=== PATIENT | male | born 1955 | race African-American/Black ===

== ENCOUNTER 2016-10-22 22:31 | Inpatient (IN) ==
[2016-10-22] MEDS ORDERED: NS 1,000 ML ONE (22:42)
[2016-10-22] MEDS ORDERED: NS 1,000 ML IV ONE (22:44)
[2016-10-22 23:24] LABS: MANUAL DIFF NEEDED? NO
[2016-10-22 23:27] LABS: BASO% 0.4 % (0.0-0.8); EOS# 0.07 X1000 (0.0-0.7); EOS% 1.3 % (0.0-10.0); HEMATOCRIT 37.9 % (42.0-52.0); HEMOGLOBIN 13.4 g/dL (14.0-18.0); IMM GRAN# 0.02 X1000 (0.0-0.04); IMM GRAN% 0.4 % (0.0-0.5); LYMPH# 1.22 X1000 (1.2-3.4); LYMPH% 23.2 % (20.5-51.1); MCH 31.2 PG (27-31); MCHC 35.4 g/dL (33-37); MCV 88.3 FL (81-99); MONO# 0.55 X1000 (0.11-0.59); MONO% 10.5 % (1.7-9.3); MPV 9.7 FL (7.4-10.4); NEUT% 64.2 % (42.2-75.2); PLT 351 X1000 (130-400); RBC 4.29 XMIL (4.7-6.1)
[2016-10-22 23:46] LABS: ALBUMIN 3.3 g/dL (3.5-5.0); CALCIUM 8.1 mg/dL (8.8-10.2); POTASSIUM 3.9 mmol/L (3.5-5.1); TOTAL BILIRUBIN 0.22 mg/dL (0.20-1.00); TOTAL PROTEIN 6.6 g/dL (6.3-8.3)
[2016-10-22 23:50] LABS: URINE CULTURE NEEDED? NO; URINE MICRO REVIEW NEEDED? NO; URINE SOURCE CATH
[2016-10-23 00:08] LABS: UR AMPHETAMINES QUAL NONE DETECTED (NONE DETECT); UR BARBITUATES QUAL NONE DETECTED (NONE DETECT); UR BENZODIAZEPIN QUAL NONE DETECTED (NONE DETECT); UR CANNABINOIDS QUAL NONE DETECTED (NONE DETECT); UR COCAINE QUAL NONE DETECTED (NONE DETECT); UR METHADONE QUAL NONE DETECTED (NONE DETECT); UR OPIATES QUAL NONE DETECTED (NONE DETECT); UR OXYCODONE QUAL NONE DETECTED (NONE DETECT); UR PCP QUAL NONE DETECTED (NONE DETECT)
[2016-10-23 00:17] LABS: BILIRUBIN URINE NEGATIVE (NEGATIVE); BLOOD URINE NEGATIVE (NEGATIVE); COLOR STRAW; GLUCOSE URINE >1000 mg/dL (NEGATIVE); LEUKOCYTES URINE NEGATIVE (NEGATIVE); NITRITE URINE NEGATIVE (NEGATIVE); PH URINE 5.5; PROTEIN URINE NEGATIVE (NEGATIVE); SP GRAVITY URINE 1.025; TURBIDITY URINE CLEAR (CLEAR); UR EPITHELIAL CELLS <10 /HPF (<10); URINE BACTERIA NEGATIVE /HPF; URINE RBC <10 /HPF (<10); URINE WBC <10 /HPF (<10); UROBILINOGEN URINE NORMAL (NORMAL)
--- NOTE | 2016-10-23 00:55 | PROVIDER DOCUMENTATION ---
This chart was entered by Urvashi Canas Scribe, acting as scribe for Rik Lima MD. HPI-General Adult - General Stated Complaint: lethargic;hypotensive;hypoxic Time Seen by Provider: 10/22/16 22:42 Source: patient, EMS Allergies/Adverse Reactions: Patient Allergies Allergy/AdvReac Type Severity Reaction Status Date / Time warfarin sodium * Allergy Intermediate FLUSHING Verified 10/22/16 23:19 [From Coumadin] Home Medications: Home Medication List Medication Instructions Recorded Confirmed Last Taken Type Clopidogrel Bisulfate [Plavix] 75 mg PO DAILY 03/13/16 10/22/16 10/22/16 History Hydrochlorothiazide 25 mg PO DAILY 03/13/16 10/22/16 10/22/16 History Insulin Detemir [Levemir] 40 units SUBQ TID 03/13/16 10/22/16 10/22/16 History Metoclopramide HCl 10 mg PO TID CC 03/13/16 10/22/16 10/22/16 History Metoprolol Succinate 200 mg PO DAILY 03/13/16 10/22/16 10/22/16 History Ranitidine HCl 150 mg PO BID 03/13/16 10/22/16 10/22/16 History ATORVAstatin [Lipitor] 80 mg PO QHS #30 tablet 03/18/16 10/22/16 10/22/16 Rx Aspirin 81 mg PO DAILY #0 chewtab 03/18/16 10/22/16 10/22/16 Rx Insulin Glargine [Lantus] 10 unit SUBQ QAM #1 insuln.pen 03/18/16 10/22/1610/22 Rx Clindamycin [Cleocin] 150 mg PO Q6HR 09/23/16 10/22/16 10/22/16 History Escitalopram Oxalate 20 mg PO DAILY 09/23/16 10/22/16 10/22/16 History Fenofibrate [Tricor] 48 mg PO QHS 09/23/16 10/22/16 10/22/16 History Glipizide 10 mg PO BID 09/23/16 10/22/16 10/22/16 History Hydroxyzine Pamoate 50 mg PO 4XDAY 09/23/16 10/22/16 10/22/16 History Lisinopril 40 mg PO BID 09/23/16 10/22/16 10/22/16 History Metformin HCl 1,000 mg PO BID 09/23/16 10/22/16 10/22/16 History Trazodone HCl 100 mg PO HS 09/23/16 10/22/16 10/22/16 History Fluoxetine [Prozac] 20 mg PO DAILY 10/22/16 10/22/16 10/22/16 History - History of Present Illness -Gen Adult Nature of Presenting Problems: 61 Y/O M brought in be EMS do to being lethargic, hypotensive, and hypoxic. Pt on arrival wqs able to speak and open eyes on command. EMS states not moving left side. HX of stroke with left sided weakness. Upeer and lower extremity moderate left sided weakness noted. Location of Pain/Injury: reports: upper extremity, abdomen, lower extremity Pain Radiation: reports: no radiation Quality of Pain: reports: aching Severity: reports: moderate Onset/Duration: reports: this evening Timing: reports: still present Context/Activities at Onset: reports: light activity Associated Symptoms: reports: muscle aches, weakness. denies: nausea, seizure Recently seen or treated by another doctor?: No Review of Systems - Adult - REVIEW OF SYSTEMS - ADULT Constitutional: denies: chills, fever Eyes: reports: no symptoms reported Ears, Nose, Mouth & Throat: reports: no symptoms reported Cardiovascular: reports: no symptoms reported Respiratory: reports: no symptoms reported Gastrointestinal: reports: abdominal pain. denies: difficulty swallowing, nausea Genitourinary: reports: no symptoms reported Musculoskeletal: reports: muscle aches. denies: bone pain, back pain Integumentary: reports: no symptoms reported Neurological: reports: no symptoms reported Psychiatric: reports: no symptoms reported Endocrine: reports: no symptoms reported Hematologic/Lymphatic: reports: no symptoms reported Allergic/Immunologic: reports: no symptoms reported All Other Systems: Reviewed and Negative Past History - Adult - PAST MEDICAL HISTORY-ADULT Review of Records: reports: Old Records Reviewed, Nursing Assessment Review, Medications Reviewed, Social history reviewed & non-contributory. Major Childhood Illnesses: reports: denies history Cardiovascular: reports: cardiac disease, CAD, HTN, hyperlipidemia, VT Respiratory: reports: asthma, sleep apnea Gastrointestinal: reports: pancreatitis Obstetrical/Gynecological: reports: denies history Genitourinary: reports: kidney disease Musculoskeletal: reports: denies history Neurological: reports: CVA (right hemispheric stroke), stroke deficits (left sided weakness), Seizures/Epilepsy Endocrine/Immune: reports: Diabetes, other (hyponatremia) Other Conditions: reports: denies history - PRIOR SURGERIES/PROCEDURES Surgical/Procedure History: reports: cardiac stent (x4 stents), orthopedic ( extremity) (left knee Sx) - IMMUNIZATION STATUS Childhood Immunizations: See Nurse Assessment Flu Vaccine: See Nurse Assessment - FAMILY HISTORY Family History: reviewed, not pertinent - SOCIAL HISTORY Smoking: quit greater than 1 year Alcohol Use Frequency: occasionally Living Situation: family Physical Exam-General - PHYSICAL EXAM-ADULT Initial Vital Signs Reviewed: Yes - CONSTITUTIONAL General Appearance: alert, lethargic, slow to respond - EYES Eyes: PERRL/EOMI, pink conjunctivae, fundi clear, no AV nicking - HEAD, EARS, NOSE, MOUTH & THROAT HENMT: normocephalic/atraumatic, moist mucous membranes, normal ENT inspection, TMs normal, pharynx normal - NECK Neck: non-tender - RESPIRATORY Respiratory: chest non-tender, lungs clear, normal breath sounds - CARDIOVASCULAR Cardiovascular: normal peripheral pulses, regular rate, rhythm - GASTROINTESTINAL (ABDOMEN) Abdominal Exam: tenderness (LLQ moderate) - LYMPHATIC Lymphatic: no adenopathy - MUSCULOSKELETAL Extremity: other (lower and upper extremity moderate weakness to left side) - SKIN Integumentary: normal color, normal turgor, warm/dry Progress - PLAN OF CARE/RESULTS Progress/Plan/Lab Results: Vital Signs - 8 hr 10/22/16 22:36 Pulse Rate 75 Respiratory Rate 15 Blood Pressure 97/57 O2 Sat by Pulse Oximetry 98 Orders Category Date Time Status ABDOMEN/PELVIS W/CONTRAST [CT] Stat Exams 10/22/16 22:[address] ABD/PELVIS W/ IV CONT ONLY [CT] Stat Exams 10/22/16 22:48 Ordered ALCOHOL BLOOD Stat Lab 10/22/16 22:45 Ordered CBC WITH ELECTRONIC DIFF [HEME] Stat Lab 10/22/16 22:43 Uncollected CK PROFILE [SP CHEM] Stat Lab 10/22/16 22:43 Uncollected CMP [COMPREHENSIVE METABOLIC PANEL] [CHEM] Stat Lab 10/22/16 22:43 Uncollected Ddimer [D-DIMER] [CHEM] Stat Lab 10/22/16 22:43 Uncollected LACTATE, PLASMA [CHEM] Stat Lab 10/22/16 22:45 Uncollected LIPASE [CHEM] Stat Lab 10/22/16 22:45 Uncollected TROPONIN T Stat Lab 10/22/16 22:43 Uncollected UA NIMS W/REFLEX CULT [URINALYSIS] Stat Lab 10/22/16 22:44 Uncollected UDS [URINE DRUG SCREEN] Stat Lab 10/22/16 22:45 Uncollected 0.9% Sodium Chloride Inj [Ns] 1,000 ml Med 10/22/16 22:42 Discontinued .ROUTE As Directed 0.9% Sodium Chloride Inj [Ns] 1,000 ml Med 10/22/16 22:44 Active IV 999 mls/hr EKG [EKG] Stat Ther 10/22/16 22:36 Ordered Result Diagrams: 10/22/16 22:48 10/22/16 22:48 - EKG 1 Time of EKG reading by physician:: 22:40 EKG Read and Signed by:: Rik Lima EKG Interpretation (*Must complete 3 of following elements*): Abnormal ( possible left atrial enlargement, infereior infract, t wave abnormality, consider lateral ischemia) Rate: 77 Rhythm: NSR Comments: Abnormal ECG, Prolonged QT - XRAY 1 XRAY Study: Chest XRAY Interpretation: csrdiomegaly, questionable pulmonary vascular congestion - ULTRASOUND (By Radiology) 1 US Study: Aorta Impression: Normal US Results: NAD - CONSULTS/PCP/HOSPITALIST Notification #1 *Consult/PCP/Hospitalist*: Time Discussed: 00:28 Reason/Comments: admit Consult Disposition: Admit (accepted) Departure - Departure Time of Disposition Decision: 00:31 DIAGNOSIS: Hypotension Qualifiers: Hypotension type: idiopathic hypotension Qualified Code(s): I95.0 - Idiopathic hypotension Disposition: ADMITTED INPATIENT 09 Certified Medical Emergency: Emergent Condition: Fair - Critical Care Note This patient required my direct personal management.: No This chart was documented by the indicated scribe, (Urvashi Canas Scribe) and accurately reflects the services I performed and decisions made by me, Rik Lima MD, as attested by the provider's signature.
[2016-10-23] MEDS ORDERED: ZOFRAN IV PRN (02:36)
[2016-10-23] MEDS: NS 1,000 ML IV SCH ×2 (03:20→14:42)
--- NOTE | 2016-10-23 05:43 | EKG Report ---
Test Performed on : 10/22/2016 10:40:51 PM Test Reason : hypotension Blood Pressure : / mmHG Vent. Rate : 077 BPM Atrial Rate : 077 BPM P-R Int : 160 ms QRS Dur : 104 ms QT Int : 448 ms P-R-T Axes : 068 007 112 degrees QTc Int : 506 ms Normal sinus rhythm. Possible Left atrial enlargement Inferior infarct (cited on or before 19-OCT-2013) T wave abnormality, consider lateral ischemia Prolonged QT Abnormal ECG When compared with ECG of 15-MAR-2016 03:31, Serial changes of Inferior infarct present Unconfirmed Result
--- NOTE | 2016-10-23 06:23 | HISTORY AND PHYSICAL ---
PRIMARY CARE PHYSICIAN: Dr. Venkatesh Olmedo. CHIEF COMPLAINT: Passed out. HISTORY OF PRESENTING ILLNESS: A 61-year-old male with a history of hypertension, diabetes mellitus type 2, and extensive history of coronary disease and [place]. Had presented to the emergency department after he had an episode where he passed out. The patient states he was going to the bathroom, then all of a sudden he passed out. He does not remember much more than that. He was brought to the emergency department. He was moderately lethargic and very hypotensive. He was given IV fluid boluses, and he seemed to improve. Due to patient's presenting symptoms, he will need hospitalization and further management. At the time of my examination, he states that he still feels weak. He denies any headache, fever, chills, chest pain, hemoptysis, or weight changes, but complained of weakness and being short of breath. PAST MEDICAL HISTORY: Hypertension, diabetes mellitus type 2, hyperlipidemia, coronary artery disease/myocardial infarction. PAST SURGICAL HISTORY: Coronary stent, left knee surgery, right arm surgery. ALLERGIES: Warfarin. CURRENT MEDICATIONS: As listed in the MAR. SOCIAL HISTORY: He is a former smoker. History of alcohol abuse. History of illicit drug use, including marijuana and cocaine. FAMILY HISTORY: Positive for coronary artery disease in mother. REVIEW OF SYSTEMS: Twelve point review of systems listed as in HPI. Other systems negative. PHYSICAL EXAMINATION: GENERAL: Cooperative, friendly male. He is resting more comfortably now. VITAL SIGNS: Temperature 97.7 degrees, pulse 75, respirations 15, blood pressure 97/57. HEENT: Atraumatic, normocephalic. Extraocular movements intact. PERRLA. NECK: No masses. CHEST: Clear to auscultation. CARDIOVASCULAR: Regular rate and rhythm. ABDOMEN: Soft. Positive bowel sounds. EXTREMITIES: No edema. NEUROLOGIC: He is awake, alert, oriented x1. GENITOURINARY: No bladder distention. SKIN: Warm. LABORATORIES AND STUDIES: WBC 5.26, hemoglobin 13.4, hematocrit 37.9, platelets 351,000. Sodium 141, potassium 3.9, chloride 103, CO2 23, BUN is 13, creatinine is 1.7, glucose is 300. Troponin is 0.061. ASSESSMENT: A 61-year-old male with a history of hypertension, diabetes mellitus type 2, and coronary artery disease, had presented to the emergency department after he had an episode where he passed out. He was found to be lethargic and very hypotensive in the ER. He was given IV fluids. He was moderately also confused. Due to his presenting symptoms, he will need hospitalization for further management. 1. Hypotension, unspecified. 2. Syncopal episode. 3. Acute kidney injury. 4. Diabetes mellitus type 2. 5. Coronary artery disease. PLAN: 1. We will admit patient to [facility]. 2. We will continue with IV fluids. 3. We will check orthostatic blood pressure and pulse. 4. We will monitor renal function. 5. Monitor blood glucose and put patient on sliding scale insulin regimen. 6. We will trend his troponins. 7. We will check echocardiogram. 8. We will consult cardiology. 9. Will put patient on DVT prophylaxis with SCDs. 10. We will continue to follow and reassess. cc: Leno Vargas MD
--- NOTE | 2016-10-23 06:24 | Diag Imaging Result Document ---
PROCEDURE NAME: ABDOMEN/PELVIS W/O CONTRAST - 10/22/2016 CT ABDOMEN AND PELVIS WITHOUT ORAL OR INTRAVENOUS CONTRAST: FINDINGS: Heart is enlarged. The gallbladder is contracted. No calcified stones. Normal spleen and adrenal glands. Normal noncontrasted pancreas. No perinephric inflammation. Calcifications on the left believed to be vascular rather than renal stones. No other renal stones. No hydronephrosis. Tiny cysts or possibly even hemangioma inferiorly in the right lobe of the liver. No aortic aneurysm. Mild atherosclerosis. There is small periaortic lymph nodes. No bowel obstruction. Normal appendix. No abscess. The stomach is distended with fluid. There are fluid-filled loops of bowel in the left lower quadrant as well. The urinary bladder is moderately distended and appears normal. The prostate is not enlarged. There are small mesenteric lymph nodes. IMPRESSION: 1. Several fluid-filled loops of bowel in the left lower quadrant. Although this may be a normal variant, this could represent enteritis. 2. Cardiomegaly. 3. Tiny nonspecific hypodense nodules within the liver and questionable pancreatic tail hypodense nodule. A preliminary report was given at 12:44 a.m. [facility]
[2016-10-23] MEDS: HUMULIN R SUBQ SCH ×4 (06:54→20:38)
--- NOTE | 2016-10-23 08:01 | Diag Imaging Result Document ---
PROCEDURE NAME: CHEST-PORTABLE - 10/22/2016 PORTABLE CHEST AT 2034 HOURS: FINDINGS: Considering differences in technique, there has been no significant change since 03/13/2016. IMPRESSION: Stable chest.
[2016-10-23] MEDS: ASPIRIN PO SCH (08:59)
[2016-10-23] MEDS: PLAVIX PO SCH (09:00)
[2016-10-23] MEDS: NORCO-5 PO PRN ×3 (09:00→20:36)
[2016-10-23] MEDS ORDERED: LEXAPRO PO SCH (09:00)
[2016-10-23] MEDS: ZANTAC PO SCH ×2 (10:01→20:37)
[2016-10-23] MEDS: PROZAC PO SCH (10:01)
[2016-10-23] MEDS: LANTUS SUBQ SCH (10:02)
[2016-10-23 10:38] LABS: ALLEN TEST YES; BE 2.3 mmoll (-3.0-3.0); BLOOD TYPE ARTERIAL; DRAW SITE R RADIAL; METHB 1.8 % (0.0-1.5); MODALITY CANNULA; O2(CT) 17.7 mL/dL (15.0-23.0); PCO2(98.6) 43 mmHg (35-45); PO2(98.6) 86 mmHg (60-100); SAMPLE BLOOD; SAO2 97.7 % (95.0-100.0); THB 13.3 g/dL (11.5-17.4); pH(98.6) 7.41 (7.35-7.45)
--- NOTE | 2016-10-23 11:31 | CONSULTATION ---
DATE OF CONSULTATION: 10/23/2016 REASON FOR CONSULTATION: Cardiology was consulted for altered mental status, chest discomfort. HISTORY OF PRESENT ILLNESS: Mr. Castro is a 61-year-old gentleman with history of hypertension, diabetes, coronary artery disease, and CVA in the past, who comes with complaints of having been disoriented and he says he passed out; however, his family states that he was a little disoriented and did not know what was going on for about an hour. He has been having shortness of breath for the last couple of weeks. In addition, he has noted left-sided chest discomfort. He says it tends to worsen when he takes a deep breath. He has had stents in the past multiply and is followed up at the [facility]. He denies fevers or chills. There is no history of hemoptysis. There is no history of undue nausea or vomiting. PAST MEDICAL HISTORY: 1. Hypertension. 2. Diabetes. 3. Hyperlipidemia. 4. Coronary artery disease with myocardial infarction and multiple stents in the past. 5. Last cardiac catheterization at [facility] Left main was free of disease. Left anterior descending artery had luminal irregularities. First diagonal had 60% mid stenosis. Circumflex artery previous stents placed in the mid and distal segment, and were patent. The right coronary artery had patent stents in the proximal and distal. Left ventricular ejection fraction 50% at that time. ALLERGIES: He is allergic to Coumadin/warfarin. SOCIAL HISTORY: He is a former smoker. History of alcohol abuse. He has history of illicit drug abuse including cocaine and marijuana in the past. PHYSICAL EXAMINATION: Vital Signs: Blood pressure was 147/87. Neck: There was no thyromegaly. Cardiovascular System: Normal jugular venous pressure. No carotid bruit. First and second heart sounds were heard. There is no S3 gallop. Respiratory System: Normal air entry. There are no crepitations or rhonchi. Abdomen: Soft, nontender. Bowel sounds were heard. Central nervous system: Was alert and moving extremities. Detailed central nervous system examination not performed. LABORATORY EXAMINATION: Revealed sodium 141, potassium 3.9, BUN 13, creatinine 1.7. Cardiac enzymes negative. Hematology: Hemoglobin 13.4, WBC 5.26, platelet count of 351,000. D-dimer 0.79. IMAGING: Chest x-ray was stable. He had an abdomen and pelvis CT which revealed several fluid-filled loops of bowel, nonspecific. ASSESSMENT AND PLAN: 1. Mr. Candelario Castro is a 61-year-old gentleman with history of hypertension, diabetes, and known coronary artery disease, who comes with complaints of having, as noticed by family, altered mental status for about an hour. He has also had shortness of breath for a couple of weeks in addition to having chest pain, which is described as pleuritic. He has elevated D- dimers in the setting of elevated renal insufficiency; however, concern is whether or not he had a pulmonary embolism. We will set him up for a V/Q scan. 2. We will also get a CT scan of his head to make sure there is no obvious pathology. 3. From a cardiac standpoint, we will continue with his home medication of aspirin and Plavix. 4. He has diabetes. Continue with insulin. 5. Hypocholesterolemia. Consider fenofibrate and atorvastatin. 6. If his V/Q scan is negative, we will set him up for a Cardiolite stress test to assess for and rule out ischemia, and also get an echocardiogram to reassess his cardiac and valvular status. cc: Marcus Kinsey MD
--- NOTE | 2016-10-23 11:56 | Diag Imaging Result Document ---
PROCEDURE NAME: HEAD W/O CONTRAST - 10/23/2016 CT OF THE HEAD WITHOUT CONTRAST: FINDINGS: There is encephalomalacia in the medial posterior left parietal lobe. This was also present on 09/23/2016. There is no evidence of bleed or abnormal extra-axial fluid collection. The visualized paranasal sinuses are clear. The calvarium is intact. IMPRESSION: Chronic ischemic changes. No evidence of acute disease. If clinically indicated, further evaluation with MRI may be desirable.
[2016-10-23 12:50] LABS: CK INDEX 7.9 (0.0-2.5); CK-MB 19.72 ng/mL (0.0-5.0)
--- NOTE | 2016-10-23 13:51 | Diag Imaging Result Document ---
PROCEDURE NAME: LUNG SCAN / VQ - 10/23/2016 VENTILATION-PERFUSION NUCLEAR MEDICINE LUNG SCAN: TECHNIQUE: 38.2 mCi of DTPA inhaled for the ventilation images. 5.5 mCi MAA given IV for the perfusion images. FINDINGS: There are no ventilation perfusion mismatches. Questionable single matching defect anteriorly in the left lung. No other abnormality. IMPRESSION: Low probability for a pulmonary embolus.
--- NOTE | 2016-10-23 16:11 | PROGRESS NOTE ---
DATE: 10/23/2016 SUBJECTIVE: A 61-year-old male with history of hypertension, diabetes mellitus type 2, extensive history of coronary artery disease and myocardial infarction in the past. Presented to the emergency room department after he had an episode where he passed out. The patient stated he was going to the bathroom and all of a sudden he passed out. Denies remembering much more than that. He was brought to the emergency department moderately lethargic, very hypotension. Was given IV bolus and seemed to improve. Due to the patient's presenting symptoms, he are going to put him in the hospital. He has history of hypertension, diabetes mellitus type 2, hyperlipidemia, coronary artery disease. He said he has had 4 or 5 heart attacks and 4 or 5 strokes. I am not sure if he is confusing those. He has coronary stent placement. Left knee surgery. Right arm surgery. ALLERGIES: Warfarin. OBJECTIVE: General: When I saw him in the emergency room, he was awake and alert and denied any chest pain. Still some low-grade nausea. He did admit he had some nausea yesterday before he had a syncopal event. Denies chest pain, or jaw pain or shoulder pain. Vital signs: Afebrile, temperature 97.4 degrees, pulse 80, respirations 18, blood pressure 155/93. HEENT: Pupils are equal, round. Lungs: Are clear in all lung schaefer. Cardiovascular: Regular rhythm and rate without murmur or S3. Abdomen: Soft. Skin: Is warm and dry. Height 5 feet 7 inches. Urine output 1800 mL. LABORATORY FROM YESTERDAY EVENING: White count 5260, hematocrit 37, platelet count 351,000. Chemistries look good. Total CPK was 251. His troponin 0.061, 0.190 and 0.101. ASSESSMENT/PLAN: Dr. Kinsey has seen this 61-year-old gentleman with history of hypertension, diabetes, known coronary artery disease. Comes in complaining of having family noticed altered mental status and he also had passed out. Over a couple of weeks he has been having chest pain, described as pleuritic. He had an elevated D-dimer. He underwent V/Q scan, low probability of pulmonary emboli and they did a myocardial perfusion scan today. Troponin for the most part unremarkable, although he his elevated CPK was nonspecific. Creatinine is 1.7. Looking at his orders, he is on trazodone 100 mg at bedtime, Zantac 150 mg b.i.d., normal saline 100 mL an hour, Prozac 20 mg a day. Tricor 48 mg p.o. at bedtime. Plavix 75 mg a day, Lipitor 80 mg daily, aspirin 81 mg a day. cc: Hola Sherman MD
--- NOTE | 2016-10-23 20:11 | ECHO REPORT ---
ORDER DATE: 10/23/2016 ECHOCARDIOGRAM: MEASUREMENTS: Left ventricular end-diastolic diameter 4.7, end systolic diameter 3.9, septal thickness 1.4, posterior wall thickness 1.4, left atrium 3.9, aortic root 3.2. SUMMARY: 1. Adequate quality study. 2. Aortic valve is trileaflet and opens normally on 2-dimensional images with peak gradient less than 10 mmHg. Mitral, tricuspid and pulmonic valves are without structural abnormality with mild mitral regurgitation. Mild tricuspid regurgitation and mild pulmonic insufficiency. The estimated systolic PA pressure by Doppler is approximately 20 mmHg. The aortic root is normal size. 3. Normal left ventricular chamber size with mild to moderate concentric left hypertrophy is demonstrated. Estimated left ventricular ejection fraction is 40% in the setting of mild global hypokinesis. Doppler suggests grade 1 left ventricular diastolic dysfunction due to impaired relaxation. The left atrium is mildly enlarged. Right atrium and right ventricle are normal size with preserved right ventricular systolic function. 4. No pericardial effusion. 5. Appearance of inferior vena cava suggests normal central venous pressure. CONCLUSION: 1. Mild mitral regurgitation. 2. Mild tricuspid regurgitation. 3. Mild to moderate concentric left hypertrophy with estimated left ventricular ejection fraction 40%. 4. Grade 1 left ventricular diastolic dysfunction. 5. Mild left atrial enlargement. cc: MD Leno Mcmillan MD
[2016-10-23 20:31] LABS: CK INDEX 6.1 (0.0-2.5); CK-MB 13.51 ng/mL (0.0-5.0)
[2016-10-23] MEDS: DESYREL PO SCH (20:37)
[2016-10-23] MEDS: TRICOR PO SCH (20:37)
[2016-10-23] MEDS: LIPITOR PO SCH (20:41)
[2016-10-24] MEDS: NS 1,000 ML IV SCH ×3 (01:05→20:37)
[2016-10-24] MEDS: NORCO-5 PO PRN (04:47)
[2016-10-24 04:57] LABS: MANUAL DIFF NEEDED? NO
[2016-10-24 05:01] LABS: BASO% 0.3 % (0.0-0.8); EOS# 0.22 X1000 (0.0-0.7); EOS% 3.1 % (0.0-10.0); HEMATOCRIT 38.9 % (42.0-52.0); HEMOGLOBIN 13.6 g/dL (14.0-18.0); IMM GRAN# 0.02 X1000 (0.0-0.04); IMM GRAN% 0.3 % (0.0-0.5); LYMPH# 2.89 X1000 (1.2-3.4); LYMPH% 40.8 % (20.5-51.1); MCV 88.6 FL (81-99); MONO# 0.52 X1000 (0.11-0.59); MONO% 7.3 % (1.7-9.3); MPV 9.6 FL (7.4-10.4); NEUT% 48.2 % (42.2-75.2); PLT 324 X1000 (130-400); RBC 4.39 XMIL (4.7-6.1)
[2016-10-24 05:25] LABS: AGAP 13; BUN 8 mg/dL (8-22); CHLORIDE 100 mmol/L (98-107); COSMO 283; POTASSIUM 3.6 mmol/L (3.5-5.1); SODIUM 138 mmol/L (136-145); TCO2 25 mmol/L (25-35)
[2016-10-24] MEDS: HUMULIN R SUBQ SCH ×4 (06:33→20:38)
[2016-10-24] MEDS: ZANTAC PO SCH ×2 (08:38→20:38)
[2016-10-24] MEDS: LEXAPRO PO SCH (08:38)
[2016-10-24] MEDS: PLAVIX PO SCH (08:38)
[2016-10-24] MEDS: PROZAC PO SCH (08:39)
[2016-10-24] MEDS: ASPIRIN PO SCH (08:39)
[2016-10-24] MEDS: LANTUS SUBQ SCH (08:42)
--- NOTE | 2016-10-24 09:27 | PROGRESS NOTE ---
DATE: 10/24/2016 SUBJECTIVE: He states he is doing fairly well. He got up to get a shower. He has not had any presyncopal or syncopal feelings since he has been here in the hospital. OBJECTIVE: Vital Signs: Afebrile with temp 98.5 degrees, pulse 74, respirations 18, blood pressure 140/79. Eyes: Pupils are equal, round. Lungs: Clear in all lung schaefer. Cardiovascular exam: Regular rhythm and rate without murmur or S3. Abdomen: Soft. Skin: Warm and dry. : Urine output is 600 mL. LAB: White count 7090, hematocrit 38, platelet count 324,000. Chemistries this morning: Sodium 138, potassium 3.6, chloride 100, bicarb 25, BUN 8, creatinine 1.0. Blood sugars have been 189, 244, 253. Troponin 0.101 and then 0.093. ASSESSMENT AND PLAN: 1. A 70-year-old with history of hypertension, diabetes and coronary artery disease came in complaining with family who noticed altered mental status, and he reports that he passed out. He has not been going to the bathroom for a couple weeks. He has been having some chest pain. He has a mild elevation of D-dimer. Ventilation/perfusion scan was low probability. Myocardial perfusion scan pending. Appears stable. He is requesting a higher dose of pain medicine. 2. Diabetes mellitus type 2. His blood sugar is running in the 200s. 3. He has chronic left-sided pain and neck pain for which he takes [place] at home. He is requesting a higher dose of the [place], so I will go up to the 10 mg. cc: Hola Sherman MD
[2016-10-24 09:59] LABS: AGAP 12; BUN 7 mg/dL (8-22); CALCIUM 8.2 mg/dL (8.8-10.2); CHLORIDE 99 mmol/L (98-107); CK PROFILE 172 U/L (24-204); COSMO 280; MAGNESIUM 1.6 mg/dL (1.5-2.7); POTASSIUM 3.9 mmol/L (3.5-5.1); SODIUM 136 mmol/L (136-145); TCO2 25 mmol/L (25-35)
[2016-10-24] MEDS: NORCO-10 PO PRN ×2 (10:16→16:09)
--- NOTE | 2016-10-24 12:49 | PROGRESS NOTE ---
DATE: 10/24/2016 CHIEF COMPLAINT: Chest discomfort, syncope. SUBJECTIVE: Mr. Castro is still feeling occasional funny feelings in the chest. Telemetry does not show any evidence of any significant arrhythmia. EKG done today showed sinus rhythm with LVH and a diffuse T-wave abnormality. They have done previous echocardiograms on him showing moderately impaired ejection fraction at 40% with LVH. The patient is bothered by significant back and spine pain. OBJECTIVE: Vital signs: Blood pressure right now is 140/79, temperature of 98.5, pulse 74, respirations 19. General: Patient is awake, alert, oriented, in no distress. HEENT: Unremarkable. Chest: Clear to auscultation and percussion. Cardiac: Heart sounds regular and rhythmic. No gallop or murmur. Abdomen: Nontender. Extremities: Extremities show fairly decreased pulses. No edema. Neurological exam: He moves four extremities. BLOOD WORK: Today, his sodium is 136, potassium 3.9. CK is down to 172. Troponin came down to 0.059. The highest troponin was 0.101 and then 0.093, and now it has come down to a more normal volume. BUN and creatinine are normal. IMPRESSION: 1. Patient presenting with a syncopal episode. Etiology of this is unclear. 2. Patient has a rise and fall on both CPK and troponin levels consistent with a [id number] myocardial infarction. 3. History of strokes. 4. Chronic back pain. 5. History of previous myocardial infarction and stents to the right coronary artery. RECOMMENDATIONS: With this patient's presentation and the finding of rise and fall of his CPKs and troponin, we should probably consider pursuing left heart catheterization to confirm or rule out the presence of obstruction of his coronary arteries. I would probably ask him to take some amlodipine in addition to his metoprolol. We will make a final decision on Wednesday morning depending on his clinical course. cc: Venkatesh Hughes MD
[2016-10-24] MEDS: LOPRESSOR PO SCH ×2 (14:50→20:37)
[2016-10-24] MEDS: LIPITOR PO SCH (20:37)
[2016-10-24] MEDS: TRICOR PO SCH (20:37)
[2016-10-24] MEDS: DESYREL PO SCH (20:37)
[2016-10-24] MEDS: NORVASC PO SCH (20:38)
[2016-10-25] MEDS: LOPRESSOR PO SCH ×4 (04:01→20:35)
[2016-10-25] MEDS: NORCO-10 PO PRN ×3 (04:07→20:34)
[2016-10-25 05:43] LABS: AGAP 11; BUN 8 mg/dL (8-22); CALCIUM 8.3 mg/dL (8.8-10.2); CHLORIDE 102 mmol/L (98-107); COSMO 285; SODIUM 140 mmol/L (136-145); TCO2 27 mmol/L (25-35)
[2016-10-25] MEDS: HUMULIN R SUBQ SCH ×4 (06:42→20:35)
[2016-10-25] MEDS: NS 1,000 ML IV SCH ×3 (06:42→23:14)
[2016-10-25] MEDS: ASPIRIN PO SCH (08:56)
[2016-10-25] MEDS: LEXAPRO PO SCH (08:57)
[2016-10-25] MEDS: ZANTAC PO SCH ×2 (08:57→20:35)
[2016-10-25] MEDS: PROZAC PO SCH (08:57)
[2016-10-25] MEDS: LANTUS SUBQ SCH (08:57)
[2016-10-25] MEDS: PLAVIX PO SCH (08:57)
[2016-10-25] MEDS: NORVASC PO SCH ×2 (08:58→20:35)
--- NOTE | 2016-10-25 10:47 | PROGRESS NOTE ---
DATE: 10/25/2016 SUBJECTIVE: Mr. Castro states he is feeling better. He has still got pain on the left side of his chest. He has not had any presyncopal or syncopal episodes. Does not feel dizzy. No palpitations. PHYSICAL EXAMINATION: Vital Signs: Temperature 97.9 degrees, pulse 78, respirations 12, blood pressure 113/67. Blood pressures have remained between 113-123/55-67. Lungs: Are clear in all lung schaefer. Cardiovascular Examination: Regular rhythm and rate without murmur or S3. Abdomen: Soft. Skin: Is warm and dry. Chest: I do not elicit any true left chest wall tenderness. Laboratory Data: I reviewed his labs from yesterday. White count 7090, hematocrit 38, platelet count 324,000. Blood sugars 245, 223, and 204. ASSESSMENT AND PLAN: 1. Had a syncopal episode, etiology unclear. May have been vasovagal. He did have nausea with this event. 2. Had a rise and fall in his CPK and troponin, consistent with a non-ST elevation myocardial infarction so have a perfusion scan pending. 3. History of cerebrovascular accident. 4. Chronic back pain. 5. History of previous myocardial infarction with stents placed in the right coronary artery in the past. 6. Musculoskeletal pain in the neck and left shoulder which has been chronic. We did put him on some pain medication. 7. He has a myocardial perfusion scan depending on Wednesday. He is on Norvasc 5 mg twice a day, aspirin 81 mg a day. Lipitor 80 mg daily, Plavix 75 mg a day, Lexapro 20 mg a day, TriCor 48 mg by mouth at bedtime, Prozac 20 mg daily, hydrocodone - he gets 10 mg every 6 hours as needed, insulin glargine 10 units subcutaneously every morning, metoprolol 50 mg by mouth every 6 hours, normal saline is going at 100 mL an hour, Zantac 150 mg twice a day, trazodone 100 mg at bedtime. Looking at the previous echocardiogram with Doppler done on the , he has mild mitral regurgitation, mild tricuspid regurgitation, mild to moderate concentric left ventricular hypertrophy. Estimated left ventricular ejection fraction of 40%, grade 1 ventricular systolic dysfunction, mild left atrial enlargement. I think I will turn his fluids down to 65 mL an hour from 100. cc: Hola Sherman MD
--- NOTE | 2016-10-25 12:55 | PROGRESS NOTE ---
DATE: 10/25/2016 CHIEF COMPLAINT: Chest discomfort. SUBJECTIVE: Mr. Castro states that he is still having discomfort in the chest intermittently associated with some episodes of sweats. His troponins have come back down to a value of 0.041. His ProBNP was slightly elevated at 221, CK has come down to 118. OBJECTIVE: His blood pressure is 129/79, temperature 98.4, pulse 68, respirations 16. He is awake, alert and oriented, in no distress. HEENT is unremarkable. Chest is clear to auscultation and percussion. Heart sounds regular and rhythm. No gallop or murmur. Abdomen is nontender, soft. No masses. No hepatomegaly. Extremities showed no edema. Neurologic: He moves all 4 extremities. IMPRESSION: 1. The patient presented with chest pain suspicious for angina pectoris, unstable. By enzyme criteria, he has had a rise and fall on the CKs and troponins suggesting [id number] myocardial infarction. His EKG is abnormal to begin with, with repolarization abnormality which is diffuse in the lateral precordium and lateral leads. His EKG done today again shows the same abnormality with LVH and possible inferior DE. 2. Previous stents to the right coronary artery. 3. History of strokes. 4. Chronic back pain. 5. History of presentation with a syncopal episode. RECOMMENDATIONS: At this point in time, the patient is already on maximal medical therapy including amlodipine, aspirin, Plavix, atorvastatin, fenofibrate, metoprolol, and he continues to have discomfort. I would suggest to pursue a diagnostic catheterization to confirm or rule out the presence of coronary artery disease. Benefits, risks and complications of cardiac catheterization were discussed with him. He understood and requested to proceed. We will make arrangements. cc: Venkatesh Hughes MD
[2016-10-25] MEDS: DESYREL PO SCH (20:35)
[2016-10-25] MEDS: TRICOR PO SCH (20:35)
[2016-10-25] MEDS: LIPITOR PO SCH (20:35)
[2016-10-26] MEDS: LOPRESSOR PO SCH ×4 (03:27→20:39)
[2016-10-26 05:03] LABS: MANUAL DIFF NEEDED? NO
[2016-10-26 05:08] LABS: BASO% 0.1 % (0.0-0.8); EOS# 0.27 X1000 (0.0-0.7); HEMATOCRIT 39.7 % (42.0-52.0); HEMOGLOBIN 13.8 g/dL (14.0-18.0); IMM GRAN# 0.02 X1000 (0.0-0.04); IMM GRAN% 0.3 % (0.0-0.5); LYMPH# 2.46 X1000 (1.2-3.4); LYMPH% 36.8 % (20.5-51.1); MCH 30.9 PG (27-31); MCHC 34.8 g/dL (33-37); MCV 88.8 FL (81-99); MONO# 0.52 X1000 (0.11-0.59); MONO% 7.8 % (1.7-9.3); MPV 9.9 FL (7.4-10.4); PLT 316 X1000 (130-400); RBC 4.47 XMIL (4.7-6.1)
[2016-10-26 05:15] LABS: PROTIME 10.5 Seconds (9.2-11.7); PTT 26.5 Seconds (22.0-36.0)
[2016-10-26 05:19] LABS: AGAP 11; BUN 8 mg/dL (8-22); CHLORIDE 100 mmol/L (98-107); COSMO 285; MAGNESIUM 1.6 mg/dL (1.5-2.7); POTASSIUM 3.6 mmol/L (3.5-5.1); SODIUM 139 mmol/L (136-145); TCO2 28 mmol/L (25-35)
--- NOTE | 2016-10-26 06:26 | EKG Report ---
Test Performed on : 10/25/2016 06:15:00 AM Test Reason : chest pain [place] Blood Pressure : / mmHG Vent. Rate : 062 BPM Atrial Rate : 062 BPM P-R Int : 158 ms QRS Dur : 112 ms QT Int : 452 ms P-R-T Axes : 055 -13 078 degrees QTc Int : 458 ms Normal sinus rhythm. Inferior infarct (cited on or before 19-OCT-2013) Abnormal ECG When compared with ECG of 24-OCT-2016 06:12, (Unconfirmed) No significant change was found Confirmed by Alyx MEJÍA, Franco Vaca ([id number]) on 10/26/2016 8:15:16 AM
[2016-10-26] MEDS: HUMULIN R SUBQ SCH ×4 (06:30→20:38)
--- NOTE | 2016-10-26 06:30 | EKG Report ---
Test Performed on : 10/25/2016 1:26:10 PM Test Reason : [place] Blood Pressure : / mmHG Vent. Rate : 070 BPM Atrial Rate : 070 BPM P-R Int : 162 ms QRS Dur : 108 ms QT Int : 422 ms P-R-T Axes : 052 -07 051 degrees QTc Int : 455 ms Normal sinus rhythm. Possible Left atrial enlargement Possible Inferior infarct (cited on or before 19-OCT-2013) Cannot rule out Anterior infarct , age undetermined T wave abnormality, consider lateral ischemia Abnormal ECG When compared with ECG of 25-OCT-2016 06:15, (Unconfirmed) No significant change was found Confirmed by Alyx MEJÍA, Franco Vaca ([id number]) on 10/26/2016 8:24:06 AM
--- NOTE | 2016-10-26 06:36 | EKG Report ---
Test Performed on : 10/26/2016 06:12:51 AM Test Reason : chest pain [place] Blood Pressure : / mmHG Vent. Rate : 067 BPM Atrial Rate : 067 BPM P-R Int : 170 ms QRS Dur : 114 ms QT Int : 446 ms P-R-T Axes : 039 -07 139 degrees QTc Int : 471 ms Normal sinus rhythm. Cannot rule out Anterior infarct (cited on or before 01-NOV-2014) T wave abnormality, consider lateral ischemia Abnormal ECG When compared with ECG of 25-OCT-2016 13:26, (Unconfirmed) No significant change was found Confirmed by Opal MEJÍA, Danilo Vaca ([id number]) on 10/26/2016 8:27:07 AM
[2016-10-26] MEDS ORDERED: HEPARIN 1000 UNITS/NS 2,000 UNIT/1,000 ML IV.SOLN ONE ×2 (07:38→07:46)
[2016-10-26] MEDS ORDERED: NITROGLYCERIN ONE (07:40)
[2016-10-26] MEDS ORDERED: VERSED ONE (07:56)
[2016-10-26] MEDS ORDERED: DEMEROL ONE (07:56)
[2016-10-26] MEDS: ASPIRIN PO SCH (09:11)
[2016-10-26] MEDS: LEXAPRO PO SCH (09:11)
[2016-10-26] MEDS: LANTUS SUBQ SCH (09:11)
[2016-10-26] MEDS: PLAVIX PO SCH (09:12)
[2016-10-26] MEDS: NORVASC PO SCH ×2 (09:12→20:39)
[2016-10-26] MEDS: PROZAC PO SCH (09:12)
[2016-10-26] MEDS: ZANTAC PO SCH ×2 (09:13→20:39)
--- NOTE | 2016-10-26 09:22 | CARDIAC CATH REPORT ---
DATE: 10/26/2016 PROCEDURES PERFORMED: 1. Left heart catheterization. 2. Selective coronary angiogram. 3. Left ventriculogram. 4. Opacification of right femoral artery with deployment of a 6-Cameroonian Angio- Seal device. HISTORY: Mr. Castro is a 61-year-old black gentleman who has history of coronary artery disease, previous stents, previous strokes. He has had stents to the right coronary artery twice. The last time he underwent cardiac catheterization was 3 or 4 years ago in [place]. They found patent stents. They recommended medical therapy. At this time, his pain was more intense. It did not seen to improve after he was put on medical therapy. His CPKs and troponin demonstrated a rise and fall typical of myocardial infarction. His EKG was abnormal. Echocardiogram was also abnormal. Because of his persistent chest discomfort, we recommended a left heart catheterization to confirm or rule out the presence of severe obstructive coronary artery disease. Benefits, risks and complications were explained to him. He understood and requested to proceed. DESCRIPTION OF PROCEDURE: The patient was brought to the cardiac cemetery lab[facility] in a fasting state. Right groin was prepped and draped in sterile fashion and anesthetized with lidocaine 1%. He received 1 mg of Versed and 25 mg of Demerol for sedation. The right groin was infiltrated with lidocaine. A 6-Cameroonian sheath was inserted into right femoral artery by following modified Seldinger technique. Using a 6-Cam[place]onian left René 4 left and right catheters, the left and right coronary arteries were sequentially opacified in multiple projections. Using the right René catheter, the left ventricle was opacified in the 60 degree ICELANDIC projection by hand injection and also 30 degree WHITE projection by hand injection. At the end of the procedure after reviewing the films, consultation was made with [facility]. Decision was made to perform elective PCI for his significant lesion in the right coronary artery. Medical therapy is being provided at this time. HEMODYNAMIC FINDINGS: Central aortic pressure is 112/67, left ventricular pressure is 104/24. Post LV gram 107/20. Final central aortic pressure 112/80. SUMMARY OF ANGIOGRAPHIC FINDINGS: 1. Left main coronary artery. The left main coronary artery is normal. Left main divides into the LAD and circumflex. 2. Left anterior descending coronary artery. This vessel shows a 30% to 40% plaque after giving rise to the septal branch and the major diagonal branch. The LAD is a small vessel distally. Caliber is 1.5 mm. It reaches the apex of the left ventricle. 3. Major diagonal branch. This vessel has a 60% plaque proximally. It does not appear to be critical. 4. Circumflex coronary artery. The circumflex coronary artery is a nondominant vessel. It gives rise to a high lateral branch which is free of any critical obstruction. Thereafter the circumflex gives rise to a total of 3 lateral vessel which are free of any critical obstruction. The circumflex shows mild disease in the order of 30%. 5. Right coronary artery. The right coronary artery is a dominant vessel, small in caliber. Proximally it shows a 70% stenosis just at the point of origin of the sinus abimael branch and before the stent, so this lesion is sitting at the edge of the stent proximally. The conus branch also comes off of RCA proximally. Thereafter, the RCA gives rise to an acute marginal branch, and more distally there is a stent in the distal portion of the vessel that is patent. The right coronary artery gives rise to 2 small terminal vessels. LEFT VENTRICULOGRAM: Left ventriculogram in the 60 degree ICELANDIC projection and 30 degree WHITE projection shows enlargement of the left ventricle with hypokinesis of the inferior wall. The global ejection fraction is estimated at 40% to 45%. No mitral regurgitation was noted. OPACIFICATION OF RIGHT FEMORAL ARTERY: Right femoral artery shows mild diffuse disease. No significant lesions noted. Angio-Seal device was deployed successfully. CONCLUSIONS: 1. Severe coronary artery disease. There is a severe stenosis of the right coronary artery proximally to the proximal stent. There is also mild diffuse disease in the LAD and its diagonal branch. 2. Enlargement of the left ventricle with hypokinesis of the inferior wall. 3. Elevation of the LVEDP indicating diastolic dysfunction. 4. No mitral regurgitation. No aortic stenosis. 5. Mild disease of the right femoral artery. RECOMMENDATIONS: Based on these findings, the patient is advised to pursue PCI. We will discuss with [facility], and further advice will be forthcoming. cc: MD THEODORE Fields
[2016-10-26] MEDS ORDERED: HEPARIN 25,000 UNIT in NS 250 ML IV SCH ×2 (09:30→10:30)
[2016-10-26] MEDS ORDERED: MAALOX PLUS LIQUID PO PRN (09:49)
[2016-10-26] MEDS ORDERED: NS 1,000 ML IV SCH (10:00)
--- NOTE | 2016-10-26 11:55 | EKG Report ---
Test Performed on : 10/26/2016 09:24:26 AM Test Reason : Post LHC Blood Pressure : / mmHG Vent. Rate : 065 BPM Atrial Rate : 065 BPM P-R Int : 172 ms QRS Dur : 112 ms QT Int : 436 ms P-R-T Axes : 040 -06 023 degrees QTc Int : 453 ms Normal sinus rhythm. Inferior infarct , age undetermined Abnormal ECG When compared with ECG of 26-OCT-2016 06:12, No significant change was found Confirmed by Danilo Joseph MD ([id number]) on 10/26/2016 7:58:51 PM
--- NOTE | 2016-10-26 13:07 | EKG Report ---
Test Performed on : 10/24/2016 06:12:45 AM Test Reason : chest pain Blood Pressure : / mmHG Vent. Rate : 070 BPM Atrial Rate : 070 BPM P-R Int : 150 ms QRS Dur : 110 ms QT Int : 434 ms P-R-T Axes : 080 006 009 degrees QTc Int : 468 ms Normal sinus rhythm. Left ventricular hypertrophy Cannot rule out Inferior infarct (cited on or before 19-OCT-2013) Abnormal ECG When compared with ECG of 22-OCT-2016 22:40, No significant change was found Confirmed by Alyx MEJÍA, Franco Vaca ([id number]) on 10/27/2016 12:35:23 PM
[2016-10-26] MEDS: NS 1,000 ML IV SCH (15:36)
[2016-10-26] MEDS: NORCO-10 PO PRN (15:39)
--- NOTE | 2016-10-26 16:30 | EKG Report ---
Test Performed on : 10/23/2016 12:09:37 PM Test Reason : ED. Not ordered in [place] Blood Pressure : / mmHG Vent. Rate : 082 BPM Atrial Rate : 082 BPM P-R Int : 152 ms QRS Dur : 108 ms QT Int : 408 ms P-R-T Axes : 071 -09 016 degrees QTc Int : 476 ms Normal sinus rhythm. Possible Left atrial enlargement Inferior infarct , age undetermined T wave abnormality, consider lateral ischemia Abnormal ECG No previous ECGs available Unconfirmed Result
[2016-10-26] MEDS: LIPITOR PO SCH (20:38)
[2016-10-26] MEDS: DESYREL PO SCH (20:38)
[2016-10-26] MEDS: TRICOR PO SCH (20:39)
[2016-10-27] MEDS: NORCO-10 PO PRN (00:35)
[2016-10-27] MEDS: LOPRESSOR PO SCH (03:08)
[2016-10-27] MEDS: NS 1,000 ML IV SCH (05:45)
[2016-10-27 05:50] VITALS: BP 139/77
[2016-10-27] MEDS: HUMULIN R SUBQ SCH (06:00)
--- NOTE | 2016-10-27 11:00 | PROGRESS NOTE ---
DATE: 10/26/2016 SUBJECTIVE: Mr. Castro still has some left-sided chest discomfort. Plan is to do a heart catheterization today. OBJECTIVE: Vital Signs: He is afebrile, temperature 97.8 degrees, pulse 64, respirations 18, blood pressure 120/79. Neck: CVP less than 6 cm. Lungs: Clear in all lung schaefer. Cardiovascular: Regular rhythm and rate without murmur or S3. Abdomen: Soft. Skin: Warm and dry. Urine output over 5L. LAB: White count 6690, hematocrit 39, platelet count 316,000. Chemistry: Sodium 139, potassium 3.6, chloride 100, BUN 8, creatinine 0.9, blood sugar is 133 The electrocardiogram cannot rule out anterior infarct, T-wave abnormality considering lateral ischemia. When compared to electrocardiogram earlier, no significant change was found. Presented with a bump in his cardiac enzymes and has a history of coronary artery disease. Suspicious for angina pectoris, which is unstable. Enzyme criteria, had a rise and fall in CPK, troponin, suggesting non-ST elevation myocardial infarction. Electrocardiogram abnormality began with repolarization abnormality which is diffuse in the lateral precordium and lateral leads and repeat electrocardiogram shows the same for a left heart catheterization today. PAST MEDICAL HISTORY: 1. Previous stents in the right coronary artery. 2. History of strokes. 3. History of chronic back pain. 4. Presented with syncopal episode, uncertain etiology. MEDICATIONS: Is on trazodone 100 mg at bedtime, Zantac 150 mg b.i.d., normal saline at 65 mL an hour, Lopressor 50 mg p.o. q.6 hours, TriCor 48 mg p.o. at bedtime, Prozac 20 mg daily, Lexapro 20 mg a day, Plavix 75 mg a day, Lipitor 80 mg daily, aspirin 81 mg a day, and Norvasc 5 mg b.i.d. cc: Hola Sherman MD
== END 2016-10-27 07:14 | disposition short-term general hospital (02) ==
LOC: ED 22:31 → EDIPHOLD 10-23 02:13 → SUATTDRO 10-23 02:13 → 3S 10-23 13:19
PROVIDERS: ATTEND Emergency Medicine